=== PATIENT | female | born 1945 | race Two or more races ===

== ENCOUNTER 2023-04-24 12:29 | Inpatient (IN) | payer MEDICARE, OTHER ==
[~2023-04-24] VITALS: Ht 162.6 cm; Wt 45.8 kg
[2023-04-24 12:47] LABS: BASOPHILS % (AUTO) 0.7 % (0.0-2.0); EOSINOPHILS % (AUTO) 0.6 % (0.0-6.0); HEMATOCRIT 33 % (33-45); HEMOGLOBIN 11.3 g/dL (11.5-14.8); LYMPHOCYTES # (AUTO) 0.8 K/uL (0.8-4.8); LYMPHOCYTES % (AUTO) 19.5 % (20.0-44.0); MEAN CORPUSCULAR HEMOGLOBIN 31 PG (26.0-33.0); MEAN CORPUSCULAR HGB CONC 35 g/dl (31.0-36.0); MEAN CORPUSCULAR VOLUME 89 fL (82-100); MONOCYTES # (AUTO) 0.4 K/uL (0.1-1.30); MONOCYTES % (AUTO) 10.9 % (2.0-12.0); NEUTROPHILS # (AUTO) 2.8 K/uL (1.8-8.9); NEUTROPHILS % (AUTO) 68.3 % (43.0-81.0); PLATELET COUNT (AUTO) 170 K/uL (150-450); RED BLOOD CELL COUNT(AUTO) 3.67 MIL/uL (4.0-5.2); RED CELL DISTRIBUTION WIDTH 17.2 % (11.5-15.0); WHITE BLOOD COUNT (AUTO) 4.1 K/uL (4.3-11.0)
[2023-04-24 12:55] LABS: CALCIUM, SERUM 8.8 mg/dL (8.5-10.1); CARBON DIOXIDE 30 mmol/L (21-32); CHLORIDE 98 mmol/L (98-107); CREATININE 0.7 mg/dL (0.6-1.3); GLUCOSE 123 mg/dL (74-106); POTASSIUM 3.8 mmol/L (3.5-5.1); SODIUM SERUM 135 mmol/L (136-145); UREA NITROGEN, BLOOD 11 mg/dL (7-18)
[2023-04-24 13:00] LABS: INR 1.08 (0.91-1.10); PARTIAL THROMBOPLASTIN TIME 30.9 SEC (24.3-34.3); PROTHROMBIN TIME 11.4 SECS (9.2-11.1)
[2023-04-24] MEDS ORDERED: CT SWABBABLE VALVE TRANS SET 1 EA INFUS.SET MC ONE (13:05)
[2023-04-24] MEDS ORDERED: IV NS 0.9% 250 ML IV ONE (13:05)
[2023-04-24] MEDS ORDERED: IOHEXOL-350 100 ML VIAL IV ONE (13:05)
[2023-04-24] MEDS ORDERED: APIX5TAB PO (13:17)
[2023-04-24] MEDS ORDERED: TRAZ-182 PO (13:17)
[2023-04-24] MEDS ORDERED: TRAM50TA2 PO (13:17)
[2023-04-24] MEDS ORDERED: PANT20TA2 PO (13:17)
[2023-04-24] MEDS ORDERED: ONDA8TAB13 PO (13:17)
[2023-04-24] MEDS ORDERED: BISM262O28 PO (13:17)
[2023-04-24] MEDS ORDERED: MAGN100T3 PO (13:17)
[2023-04-24] MEDS ORDERED: OMEG1CAP40 PO (13:17)
[2023-04-24] MEDS ORDERED: DICY10CA13 PO (13:17)
[2023-04-24] MEDS ORDERED: IBUP-23 PO (13:17)
[2023-04-24] MEDS ORDERED: METO5TAB2 PO (13:17)
[2023-04-24] MEDS ORDERED: AMLO5TAB4 PO (13:17)
[2023-04-24] MEDS ORDERED: VITA200C22 PO (13:17)
[2023-04-24] MEDS ORDERED: LEVE500T20 PO (13:17)
[2023-04-24] MEDS ORDERED: DENO60DI SQ (13:17)
[2023-04-24] MEDS ORDERED: LIDO30AD10 TP (13:17)
[2023-04-24] MEDS ORDERED: VITAMIN E PO (13:30)
[2023-04-24] MEDS ORDERED: OMEGA 3 PO (13:30)
[2023-04-24] MEDS: ACETAMINOPHEN 325 MG TABLET PO ONE (14:30)
[2023-04-24] MEDS ORDERED: ACETAMINOPHEN 325 MG TABLET ONE (14:41)
[2023-04-24] MEDS ORDERED: MAG HYDROX/AL HYDROX/SIMETH 30 ML UDC PO PRN (15:30)
[2023-04-24] MEDS ORDERED: ONDANSETRON HCL/PF 4 MG/2 ML VIAL IVP PRN (15:30)
[2023-04-24] MEDS ORDERED: Z GUARD REMEDY 4 OZ OINT TP PRN (15:30)
[2023-04-24] MEDS ORDERED: MAGNESIUM HYDROXIDE 30 ML UDC PO PRN (15:30)
[2023-04-24 16:17] LABS: BASOPHILS % (AUTO) 0.6 % (0.0-2.0); EOSINOPHILS % (AUTO) 0.3 % (0.0-6.0); HEMATOCRIT 33 % (33-45); HEMOGLOBIN 11.1 g/dL (11.5-14.8); LYMPHOCYTES # (AUTO) 0.9 K/uL (0.8-4.8); LYMPHOCYTES % (AUTO) 21.3 % (20.0-44.0); MEAN CORPUSCULAR HEMOGLOBIN 30 PG (26.0-33.0); MEAN CORPUSCULAR HGB CONC 34 g/dl (31.0-36.0); MEAN CORPUSCULAR VOLUME 90 fL (82-100); MONOCYTES # (AUTO) 0.3 K/uL (0.1-1.30); MONOCYTES % (AUTO) 6.1 % (2.0-12.0); NEUTROPHILS # (AUTO) 3.1 K/uL (1.8-8.9); NEUTROPHILS % (AUTO) 71.7 % (43.0-81.0); PLATELET COUNT (AUTO) 190 K/uL (150-450); RED BLOOD CELL COUNT(AUTO) 3.66 MIL/uL (4.0-5.2); RED CELL DISTRIBUTION WIDTH 17.2 % (11.5-15.0); WHITE BLOOD COUNT (AUTO) 4.3 K/uL (4.3-11.0)
[2023-04-24 16:19] LABS: AMPHETAMINE, URINE NEGATIVE (NEGATIVE); BARBITURATE, URINE NEGATIVE (NEGATIVE); BENZODIAZEPINE, URINE NEGATIVE (NEGATIVE); COCCAINE, URINE NEGATIVE (NEGATIVE); OPIATE, URINE NEGATIVE (NEGATIVE); PHENCYCLIDINE SCREEN,URINE NEGATIVE (NEGATIVE)
[2023-04-24 16:34] LABS: CALCIUM, SERUM 8.6 mg/dL (8.5-10.1); CARBON DIOXIDE 25 mmol/L (21-32); CHLORIDE 98 mmol/L (98-107); CREATININE 0.5 mg/dL (0.6-1.3); GLUCOSE 91 mg/dL (74-106); POTASSIUM 3.7 mmol/L (3.5-5.1); SODIUM SERUM 132 mmol/L (136-145); UREA NITROGEN, BLOOD 10 mg/dL (7-18)
[2023-04-24 16:35] LABS: APPEARANCE,URINE CLEAR (CLEAR); BILIRUBIN,URINE NEGATIVE (NEGATIVE); BLOOD, URINE NEGATIVE Ery/uL (NEGATIVE); COLOR,URINE YELLOW (YELLOW); KETONES,URINE NEGATIVE (NEGATIVE); LEUKOCYTE ESTERASE ,URINE NEGATIVE (NEGATIVE); NITRITE, URINE NEGATIVE (NEGATIVE); PROTEIN,URINE NEGATIVE (NEGATIVE); UGLUCOSE NEGATIVE (NEGATIVE); UROBILINOGEN,URINE 0.2 EU/dL (0.2)
[2023-04-24 16:36] LABS: CANNABINOID, URINE POSITIVE (NEGATIVE)
[2023-04-24 16:39] LABS: ALANINE AMINOTRANSFERASE 16 U/L (12-78); ALBUMIN 2.9 g/dL (3.4-5.0); ALKALINE PHOSPHATASE 56 U/L (46-116); ASPARTATE AMINOTRANSFERASE 22 U/L (15-37); BILIRUBIN,TOTAL 0.5 mg/dL (0.2-1.0); TOTAL PROTEIN, SERUM 6.7 g/dL (6.4-8.2)
[2023-04-24 16:47] LABS: THYROID STIMULATING HORMONE 1.001 uIU/mL (0.358-3.74)
[2023-04-24] MEDS: BLOOD SUGAR DIAGNOSTIC 1 EACH STRIP IN SCH ×2 (17:28)
[2023-04-24] MEDS: LEVETIRACETAM (250 MG) 250 MG TABLET PO SCH (17:30)
[2023-04-24] MEDS: APIXABAN 5 MG TABLET PO SCH (17:30)
[2023-04-24 17:46] LABS: ERYTHROCYTE SEDIMENTATION RATE 29 MM/HR (0-30)
[2023-04-24 18:00] VITALS: BP 149/91; TEMP 98.6; O2SAT 100
[2023-04-24] MEDS: ACETAMINOPHEN 325 MG TABLET PO PRN (18:17)
[2023-04-24] MEDS: TRAMADOL HCL 50 MG TABLET PO PRN (20:18)
[2023-04-24 22:00] VITALS: BP 151/81; TEMP 98.6; O2SAT 99
[2023-04-25] MEDS: oxyCODONE/APAP (5/325 MG) 1 UDTAB TABLET PO PRN (01:57)
[2023-04-25 06:00] VITALS: BP 138/82; TEMP 98.1; O2SAT 99
[2023-04-25 06:58] LABS: INR 1.09 (0.91-1.10); PARTIAL THROMBOPLASTIN TIME 32.3 SEC (24.3-34.3); PROTHROMBIN TIME 11.5 SECS (9.2-11.1)
[2023-04-25 06:59] LABS: BASOPHILS % (AUTO) 0.7 % (0.0-2.0); EOSINOPHILS % (AUTO) 0.6 % (0.0-6.0); HEMATOCRIT 31 % (33-45); HEMOGLOBIN 10.7 g/dL (11.5-14.8); LYMPHOCYTES % (AUTO) 18.3 % (20.0-44.0); MEAN CORPUSCULAR HEMOGLOBIN 31 PG (26.0-33.0); MEAN CORPUSCULAR HGB CONC 35 g/dl (31.0-36.0); MEAN CORPUSCULAR VOLUME 88 fL (82-100); MONOCYTES # (AUTO) 0.5 K/uL (0.1-1.30); MONOCYTES % (AUTO) 9.6 % (2.0-12.0); NEUTROPHILS % (AUTO) 70.8 % (43.0-81.0); PLATELET COUNT (AUTO) 190 K/uL (150-450); RED BLOOD CELL COUNT(AUTO) 3.49 MIL/uL (4.0-5.2); RED CELL DISTRIBUTION WIDTH 17.1 % (11.5-15.0); WHITE BLOOD COUNT (AUTO) 5.6 K/uL (4.3-11.0)
[2023-04-25 07:17] LABS: CALCIUM, SERUM 8.8 mg/dL (8.5-10.1); CREATININE 0.7 mg/dL (0.6-1.3); MAGNESIUM 2.2 mg/dL (1.8-2.4); PHOSPHORUS 3.1 mg/dL (2.5-4.9); POTASSIUM 3.2 mmol/L (3.5-5.1)
[2023-04-25 08:00] VITALS: BP 153/78; TEMP 98; O2SAT 99
[2023-04-25] MEDS: PANTOPRAZOLE 40 MG TABLET.DR PO SCH (08:50)
[2023-04-25] MEDS: ASPIRIN EC 325 MG TABLET.DR PO SCH (08:50)
[2023-04-25] MEDS: LIDOCAINE 5% (PATCH) 1 EA PATCH TP SCH (08:53)
[2023-04-25] MEDS ORDERED: AMLODIPINE BESYLATE 5 MG TABLET PO SCH (09:00)
[2023-04-25] MEDS: POTASSIUM CHLORIDE 20 MEQ TAB.PRT.SR PO SCH (10:00)
[2023-04-25 12:00] VITALS: BP 160/80; TEMP 98.2; O2SAT 99
[2023-04-25] MEDS: ENSURE ENLIVE CHOC 237 ML CAN PO SCH (12:35)
[2023-04-25] MEDS: POTASSIUM CHLORIDE 20 MEQ POWDER PACKET PO SCH (12:46)
[2023-04-25] MEDS: LEVETIRACETAM (500MG) 1,000 MG in IV NS 0.9% 90 ML IV ONE (13:57)
[2023-04-25 16:00] VITALS: BP 150/85; TEMP 97.9; O2SAT 99
[2023-04-25 20:00] VITALS: BP 153/91; TEMP 99.3; O2SAT 99
[2023-04-25 20:59] LABS: CHOLESTEROL 270 mg/dL (<200); HDL CHOLESTEROL 67 mg/dL (40-60); LDL 162 mg/dL (0-99); TRIGLYCERIDES 82 mg/dL (30-150)
[2023-04-26] VITALS: BP 158/90; TEMP 99; O2SAT 99
[2023-04-26 04:00] VITALS: BP 150/91; TEMP 98; O2SAT 99
[2023-04-26 05:51] LABS: BASOPHILS % (AUTO) 0.6 % (0.0-2.0); EOSINOPHILS % (AUTO) 0.2 % (0.0-6.0); HEMATOCRIT 31 % (33-45); HEMOGLOBIN 10.7 g/dL (11.5-14.8); LYMPHOCYTES # (AUTO) 0.8 K/uL (0.8-4.8); MEAN CORPUSCULAR HEMOGLOBIN 31 PG (26.0-33.0); MEAN CORPUSCULAR HGB CONC 35 g/dl (31.0-36.0); MEAN CORPUSCULAR VOLUME 88 fL (82-100); MONOCYTES # (AUTO) 0.4 K/uL (0.1-1.30); MONOCYTES % (AUTO) 6.5 % (2.0-12.0); NEUTROPHILS # (AUTO) 5.6 K/uL (1.8-8.9); NEUTROPHILS % (AUTO) 81.7 % (43.0-81.0); PLATELET COUNT (AUTO) 187 K/uL (150-450); RED BLOOD CELL COUNT(AUTO) 3.49 MIL/uL (4.0-5.2); RED CELL DISTRIBUTION WIDTH 16.9 % (11.5-15.0); WHITE BLOOD COUNT (AUTO) 6.9 K/uL (4.3-11.0)
[2023-04-26 06:11] LABS: CALCIUM, SERUM 8.5 mg/dL (8.5-10.1); CARBON DIOXIDE 25 mmol/L (21-32); CHLORIDE 97 mmol/L (98-107); CREATININE 0.5 mg/dL (0.6-1.3); GLUCOSE 97 mg/dL (74-106); MAGNESIUM 1.9 mg/dL (1.8-2.4); PHOSPHORUS 2.2 mg/dL (2.5-4.9); POTASSIUM 3.9 mmol/L (3.5-5.1); SODIUM SERUM 130 mmol/L (136-145); UREA NITROGEN, BLOOD 12 mg/dL (7-18)
[2023-04-26 06:14] LABS: THYROID STIMULATING HORMONE 0.624 uIU/mL (0.358-3.74)
[2023-04-26 08:00] VITALS: BP 152/83; TEMP 98; O2SAT 99
[2023-04-26] MEDS: ASPIRIN 81 MG TAB.CHEW PO SCH (08:43)
[2023-04-26 12:00] VITALS: BP 139/82; TEMP 99; O2SAT 100
[2023-04-26 16:00] VITALS: BP 140/86; TEMP 99; O2SAT 100
[2023-04-26] MEDS: K PHOS NEUTRAL 250 MG TABLET PO ONE (17:05)
[2023-04-26 20:00] VITALS: BP 119/75; TEMP 99.1; O2SAT 98
[2023-04-26] MEDS: LEVETIRACETAM (250 MG) 250 MG TABLET PO SCH (21:28)
[2023-04-26] MEDS: ATORVASTATIN 40 MG TABLET PO SCH (21:29)
[2023-04-27] VITALS: BP 127/82; TEMP 98.7; O2SAT 98
[2023-04-27 04:00] VITALS: BP 146/77; TEMP 98.7; O2SAT 97
[2023-04-27 07:07] LABS: BASOPHILS % (AUTO) 0.5 % (0.0-2.0); EOSINOPHILS # (AUTO) 0.1 K/uL (0.0-0.7); EOSINOPHILS % (AUTO) 1.2 % (0.0-6.0); HEMATOCRIT 30 % (33-45); HEMOGLOBIN 10.4 g/dL (11.5-14.8); LYMPHOCYTES # (AUTO) 1.1 K/uL (0.8-4.8); LYMPHOCYTES % (AUTO) 19.4 % (20.0-44.0); MEAN CORPUSCULAR HEMOGLOBIN 31 PG (26.0-33.0); MEAN CORPUSCULAR HGB CONC 35 g/dl (31.0-36.0); MEAN CORPUSCULAR VOLUME 88 fL (82-100); MONOCYTES # (AUTO) 0.6 K/uL (0.1-1.30); MONOCYTES % (AUTO) 11.5 % (2.0-12.0); NEUTROPHILS # (AUTO) 3.8 K/uL (1.8-8.9); NEUTROPHILS % (AUTO) 67.4 % (43.0-81.0); PLATELET COUNT (AUTO) 166 K/uL (150-450); RED BLOOD CELL COUNT(AUTO) 3.41 MIL/uL (4.0-5.2); RED CELL DISTRIBUTION WIDTH 17.2 % (11.5-15.0); WHITE BLOOD COUNT (AUTO) 5.6 K/uL (4.3-11.0)
[2023-04-27 07:30] LABS: CALCIUM, SERUM 8.2 mg/dL (8.5-10.1); CARBON DIOXIDE 27 mmol/L (21-32); CHLORIDE 97 mmol/L (98-107); CREATININE 0.5 mg/dL (0.6-1.3); GLUCOSE 86 mg/dL (74-106); POTASSIUM 3.3 mmol/L (3.5-5.1); SODIUM SERUM 132 mmol/L (136-145); UREA NITROGEN, BLOOD 14 mg/dL (7-18)
[2023-04-27 08:00] VITALS: BP 136/86; TEMP 99; O2SAT 98
[2023-04-27] MEDS: predniSONE 20 MG TABLET PO SCH (09:15)
[2023-04-27] MEDS: POTASSIUM CHLORIDE 20 MEQ TAB.PRT.SR PO ONE (11:28)
[2023-04-27 12:00] VITALS: BP 148/89; TEMP 97.5; O2SAT 98
[2023-04-27 16:00] VITALS: BP 133/81; TEMP 98.8; O2SAT 99
[2023-04-27 20:00] VITALS: BP 109/69; TEMP 98; O2SAT 96
[2023-04-28] VITALS: BP 115/71; TEMP 98.6; O2SAT 98
[2023-04-28 04:00] VITALS: BP 141/82; TEMP 98.5; O2SAT 100
[2023-04-28 07:54] LABS: BASOPHILS % (AUTO) 0.5 % (0.0-2.0); CALCIUM, SERUM 8.5 mg/dL (8.5-10.1); CREATININE 0.6 mg/dL (0.6-1.3); EOSINOPHILS # (AUTO) 0.1 K/uL (0.0-0.7); EOSINOPHILS % (AUTO) 1.2 % (0.0-6.0); HEMATOCRIT 31 % (33-45); HEMOGLOBIN 10.6 g/dL (11.5-14.8); LYMPHOCYTES # (AUTO) 1.4 K/uL (0.8-4.8); LYMPHOCYTES % (AUTO) 24.6 % (20.0-44.0); MEAN CORPUSCULAR HEMOGLOBIN 30 PG (26.0-33.0); MEAN CORPUSCULAR HGB CONC 34 g/dl (31.0-36.0); MEAN CORPUSCULAR VOLUME 89 fL (82-100); MONOCYTES # (AUTO) 0.8 K/uL (0.1-1.30); MONOCYTES % (AUTO) 14.5 % (2.0-12.0); NEUTROPHILS # (AUTO) 3.3 K/uL (1.8-8.9); NEUTROPHILS % (AUTO) 59.2 % (43.0-81.0); PLATELET COUNT (AUTO) 169 K/uL (150-450); POTASSIUM 3.6 mmol/L (3.5-5.1); RED CELL DISTRIBUTION WIDTH 17.2 % (11.5-15.0); WHITE BLOOD COUNT (AUTO) 5.6 K/uL (4.3-11.0)
[2023-04-28 08:00] VITALS: BP 136/84; TEMP 97.9; O2SAT 100
[2023-04-28 12:00] VITALS: BP 136/72; TEMP 98.3; O2SAT 100
[2023-04-28 16:00] VITALS: BP 126/76; TEMP 98.1; O2SAT 100
[2023-04-28 20:00] VITALS: BP 117/71; TEMP 97.6; O2SAT 98
[2023-04-29] VITALS: BP 114/99; TEMP 98.4; O2SAT 98
[2023-04-29 04:00] VITALS: BP 127/81; TEMP 98.2; O2SAT 97
[2023-04-29 08:00] VITALS: BP 131/76; TEMP 98; O2SAT 99
[2023-04-29] MEDS ORDERED: ATOR40TA PO (10:40)
[2023-04-29] MEDS ORDERED: ASPI-1169 PO (10:40)
[2023-04-29] MEDS ORDERED: PRED20TA PO (10:40)
[2023-04-29] MEDS ORDERED: LEVE250T2 PO (10:40)
[2023-04-29 12:00] VITALS: BP 116/74; TEMP 97.6; O2SAT 95
[2023-04-29 16:00] VITALS: BP 119/74; TEMP 98.1; O2SAT 95
== END 2023-04-29 18:45 | DRG 65 ==
LOC: ER 12:32 → TELE1 16:39
PROVIDERS: ADMIT Internal Medicine; ATTEND Internal Medicine
DX: I63.542 Cerebral infarction due to unspecified occlusion or stenosis of left cerebellar artery (principal); E87.1 Hypo-osmolality and hyponatremia; R41.4 Neurologic neglect syndrome; E86.1 Hypovolemia; F03.90 Unspecified dementia, unspecified severity, without behavioral disturbance, psychotic disturbance, mood disturbance, and anxiety; K21.9 Gastro-esophageal reflux disease without esophagitis; R29.709 NIHSS score 9; Z20.822 Contact with and (suspected) exposure to COVID-19; I10 Essential (primary) hypertension; F32.A Depression, unspecified; Z79.01 Long term (current) use of anticoagulants; Z88.8 Allergy status to other drugs, medicaments and biological substances; Z91.048 Other nonmedicinal substance allergy status; Z79.899 Other long term (current) drug therapy; G40.909 Epilepsy, unspecified, not intractable, without status epilepticus; F29 Unspecified psychosis not due to a substance or known physiological condition; D64.9 Anemia, unspecified; Z86.73 Personal history of transient ischemic attack (TIA), and cerebral infarction without residual deficits; H53.47 Heteronymous bilateral field defects
CPT/HCPCS: 36415; 70450-TC; 70496-TC; 70498-TC; 70544-TC; 70547-TC; 70551-TC; 80048-TC; 80053-TC; 80061-TC; 82962-TC; 83735-TC; 84100-TC; 84443-TC; 84484-TC; 84550-TC; 85025-TC; 85652-TC; 85730-TC; 92507-TC; 92521; 92526; 92611-TC; 93307-TC; 95819-TC; 97110-TC; 97116-TC; 97530-TC; G0378; J1953; J7030; J7050; Q9967